=== PATIENT | female | born 1955 | race African-American/Black ===

== ENCOUNTER 2022-12-21 07:40 | Day surgery (SDC) | payer MEDICARE ==
[~2022-12-21] VITALS: Ht 154.9 cm; Wt 76.7 kg
[~2022-12-21 07:40] MED LIST: B COMPLETE PO; D350 MCG PO; ECHINACEA80 MG PO; ZINC100 M1 PO; [UNRECOGNIZED DRUG - CODE] PO
[2022-12-21] MEDS ORDERED: B12 LIQUID PO (07:57)
[2022-12-21] MEDS ORDERED: PERCOCET 5/321 COMBO PO (09:41)
[2022-12-21 11:22] VITALS: BP 177/88
[2022-12-22] MEDS ORDERED: TRAMADOL HCL50 MG PO (09:09)
[2022-12-22] MEDS ORDERED: [UNRECOGNIZED DRUG - OTHER] PR (15:58)
[2022-12-22] MEDS ORDERED: TORADOL PO (15:58)
== END 2022-12-21 11:45 | disposition home or self-care (01) ==
LOC: ENDO 07:40 → ORM 09:30 → ENDO 10:10
PROVIDERS: ATTEND Surgery
PROC: 0DBQ0ZZ Excision of Anus, Open Approach (ICD-10-PCS; principal; 2022-12-21)
DX: K60.3 Anal fistula (principal); K64.4 Residual hemorrhoidal skin tags; I10 Essential (primary) hypertension
CPT/HCPCS: C9290; J0131

== ENCOUNTER 2022-12-22 13:46 | Emergency (ER) | payer MEDICARE ==
[~2022-12-22] VITALS: Ht 154.9 cm; Wt 76.2 kg
[~2022-12-22 13:46] MED LIST changes: +B12 LIQUID PO; +PERCOCET 5/321 COMBO PO; +TRAMADOL HCL50 MG PO
[2022-12-22 14:08] VITALS: BP 182/76
[2022-12-22 14:16] VITALS: BP 168/71
[2022-12-22 14:30] VITALS: BP 166/65
[2022-12-22 14:46] VITALS: BP 171/68
[2022-12-22] MEDS ORDERED: TORADOL PO (15:58)
[2022-12-22] MEDS ORDERED: [UNRECOGNIZED DRUG - OTHER] PR (15:58)
[2022-12-22 16:35] VITALS: BP 171/68
== END 2022-12-22 16:56 | disposition home or self-care (01) ==
LOC: ED 13:46
DX: K62.89 Other specified diseases of anus and rectum (principal); Z98.890 Other specified postprocedural states